=== PATIENT | male | born 1955 | race Caucasian/White ===

== ENCOUNTER 2016-07-11 08:07 | Inpatient (IN) | payer OTHER ==
[~2016-07-11] VITALS: Ht 167.6 cm; Wt 79.4 kg
--- NOTE | 2016-07-11 08:12 | NUR ---
bibra from home due to dizziness since 299. Patient is aao3, appears in no apparent distress, respiration even and unlabored. Patient also reported nausea, no vomitting. Skin is warm to touch and non diaphoretic. Patient is afebrile. Connected pt to tele monitor. Pending MD evaluation.
--- NOTE | 2016-07-11 08:15 | NUR ---
MD Zuniga at for eval
[2016-07-11] MEDS ORDERED: MECLIZINE HCL 25 MG TABLET ONE (08:20)
[2016-07-11] MEDS ORDERED: IV NS 0.9% 1,000 ML ONE (08:20)
[2016-07-11] MEDS ORDERED: ONDANSETRON HCL/PF 4 MG/2 ML VIAL ONE (08:20)
[2016-07-11] MEDS ORDERED: DIAZEPAM 5 MG/ML 2 ML DISP.SYRIN ONE (08:20)
[2016-07-11] MEDS ORDERED: ONDANSETRON HCL/PF 4 MG/2 ML VIAL IV ONE (08:30)
[2016-07-11] MEDS ORDERED: IV NS 0.9% 1,000 ML BAG IV ONE (08:30)
[2016-07-11] MEDS ORDERED: MECLIZINE HCL 25 MG TABLET PO ONE (08:30)
[2016-07-11] MEDS ORDERED: DIAZEPAM 5 MG/ML 2 ML DISP.SYRIN IV ONE (08:30)
--- NOTE | 2016-07-11 08:34 | NUR ---
wasted valium 5mg iv, witnessed by ARIANE Concepcion
[2016-07-11 08:38] LABS: BASOPHILS # (AUTO) 0.1 /CMM (0.0-0.2); BASOPHILS % (AUTO) 0.7 % (0.0-2.0); EOSINOPHILS # (AUTO) 0.1 /CMM (0.0-0.7); EOSINOPHILS % (AUTO) 1.7 % (0.0-6.0); HEMATOCRIT 44 % (39-51); LYMPHOCYTES # (AUTO) 1.8 /CMM (0.8-4.8); MEAN CORPUSCULAR HEMOGLOBIN 29 PG (26.0-33.0); MEAN CORPUSCULAR HGB CONC 34 g/dl (31.0-36.0); MEAN CORPUSCULAR VOLUME 87 fL (80-96); MONOCYTES # (AUTO) 0.6 /CMM (0.1-1.30); MONOCYTES % (AUTO) 6.4 % (2.0-12.0); NEUTROPHILS % (AUTO) 70.2 % (43.0-81.0); PLATELET COUNT (AUTO) 315 /CMM (150-450); RDW COEFFICIENT OF VARIATION 12.8 (11.5-15.0); RED BLOOD CELL COUNT(AUTO) 5.09 MIL/uL (4.5-6.0); WHITE BLOOD COUNT (AUTO) 8.6 K/uL (4.3-11.0)
--- NOTE | 2016-07-11 08:40 | NUR ---
PT TAKEN TO CT.
[2016-07-11 08:43] LABS: CALCIUM, SERUM 8.5 mg/dL (8.5-10.1); CARBON DIOXIDE 27 mmol/L (21-32); CHLORIDE 102 mmol/L (98-107); CREATININE 0.7 mg/dL (0.6-1.3); GFR 116 mL/min (>60); GLUCOSE 247 mg/dL (74-106); POTASSIUM 3.9 mmol/L (3.5-5.1); SODIUM SERUM 138 mmol/L (136-145); UREA NITROGEN, BLOOD 13 mg/dL (7-18)
[2016-07-11 08:49] LABS: ALANINE AMINOTRANSFERASE 32 U/L (12-78); ALBUMIN 3.9 g/dL (3.4-5.0); ALCOHOL, BLOOD < 3 mg/dL (0-0); ALKALINE PHOSPHATASE 79 U/L (46-116); ASPARTATE AMINOTRANSFERASE 17 U/L (15-37); BILIRUBIN,DIRECT 0.1 mg/dL (0.0-0.2); BILIRUBIN,TOTAL 0.4 mg/dL (0.2-1.0); TOTAL PROTEIN, SERUM 7.6 g/dL (6.4-8.2)
[2016-07-11 08:53] LABS: TROPONIN I < 0.017 ng/mL (0.00-0.056)
[2016-07-11 09:30] LABS: INR 0.91 (0.87-1.13); PROTHROMBIN TIME 9.7 SECS (9.5-12.7)
[2016-07-11] MEDS ORDERED: METF500T4 PO (09:54)
[2016-07-11] MEDS ORDERED: AMLO10TA2 PO (09:54)
--- NOTE | 2016-07-11 09:58 | NUR ---
PER PT OKAY TO EAT, FOOD ORDERED FOR PT.
--- NOTE | 2016-07-11 10:18 | NUR ---
Paged [facility] -- waiting for Dr Umanzor's call back.
--- NOTE | 2016-07-11 10:55 | NUR ---
Follow up call on [facility], waiting for Dr Umanzor's call back.
--- NOTE | 2016-07-11 11:00 | NUR ---
REPORT GIVEN TO WALLY THAKKAR FOR MS 202.
--- NOTE | 2016-07-11 11:50 | NUR ---
RN NOTES DR. WAGNER AT BEDSIDE. PER MD, HE WANTS PATIENT ON TELEMETRY, IDER ORNAMENT STITCHER NOTIFIED. WAITING FOR BED.
[2016-07-11] MEDS ORDERED: Z GUARD REMEDY 2 OZ OINT TP PRN (12:00)
[2016-07-11] MEDS ORDERED: DEXTROSE 50%-WATER 50 ML DISP.SYRIN IV PRN (12:00)
[2016-07-11] MEDS ORDERED: HYDROCODONE/APAP 5/325MG 1 EACH TABLET PO PRN (12:00)
[2016-07-11] MEDS ORDERED: MAG HYDROX/AL HYDROX/SIMETH 30 ML UDC PO PRN (12:00)
[2016-07-11] MEDS ORDERED: ONDANSETRON HCL/PF 4 MG/2 ML VIAL IVP PRN (12:00)
[2016-07-11] MEDS ORDERED: ZOLPIDEM TARTRATE 5 MG TABLET PO PRN (12:00)
[2016-07-11] MEDS ORDERED: ACETAMINOPHEN 325 MG TABLET PO PRN (12:00)
[2016-07-11] MEDS ORDERED: MAGNESIUM HYDROXIDE 30 ML UDC PO PRN (12:00)
--- NOTE | 2016-07-11 12:00 | NUR ---
RN NOTES PATIENT TRANSFERRED TO RM 322. REPORT GIVEN TO BRANDON.
[2016-07-11 12:15] VITALS: BP 124/72
--- NOTE | 2016-07-11 12:15 | NUR ---
TELE/PART TIME FLEXIBLE CLERK NOTES RECEIVED THIS 60 Y/O MALE FROM ER, TO RM [id number], VIA W/C IN STABLE CONDITION, WITH ADMISSION DX: DIZZINESS, HX: DM TYPE 2, OH IN 2014 (STENT PLACED), UNDER CARE OF DR. WAGNER, PATIENT IS A/O X 4. DENIES PAIN, SOB, NO DISTRESS, ASSISTED TO THE ROOM, ORIENTED TO THE CALL LIGHT SYSTEM, VISITING HOURS. PATIENT IS ON RA, TOLERATING WELL OR SAT 96%. TELE MONITOR ATTACHED TO THE PATIENT WITH SR 94. IV LINE RAC INTACT, PATENT. FULL BODY ASSESSMENT DONE, NO SKIN BREAKDOWN, PATIENT IS AMBULATORY, CONTINENT. NEEDS MET IN TIMELY MANNER, WITH CALL LIGHT WITHIN EASY REACH. WILL CONTINUE TO MONITOR ACCORDINGLY
[2016-07-11 12:37] LABS: CALCIUM, SERUM 8.3 mg/dL (8.5-10.1); POTASSIUM 4.2 mmol/L (3.5-5.1)
[2016-07-11 12:50] LABS: ALBUMIN 3.5 g/dL (3.4-5.0); BILIRUBIN,TOTAL 0.3 mg/dL (0.2-1.0); TOTAL PROTEIN, SERUM 6.9 g/dL (6.4-8.2)
[2016-07-11 12:51] LABS: THYROID STIMULATING HORMONE 0.607 uIU/mL (0.358-3.74)
[2016-07-11] MEDS: LOSARTAN POTASSIUM 50 MG TABLET PO SCH (13:00)
--- NOTE | 2016-07-11 13:00 | NUR ---
TEXTED DR. KINGSLEY FOR MRI APPROVAL.
[2016-07-11] MEDS: BLOOD SUGAR DIAGNOSTIC 1 EACH STRIP IN SCH ×3 (13:37→22:12)
--- NOTE | 2016-07-11 13:42 | NUR ---
/ARIANE NOTES BLOOD SUGAR CHECKED 271, REFUSED MD REY MADE AWARE Addendum: 07/11/16 at 1733 by ROSELYN LECHUGA RN MRSA SWAB, AND URINE COLLECTION DONE SENT TO THE LAB
[2016-07-11] MEDS: INSULIN REGULAR, HUMAN 100 UNIT/ML 3 ML VIAL SQ PRN ×3 (15:42→22:15)
[2016-07-11 16:00] VITALS: BP 128/66
[2016-07-11 16:25] LABS: APPEARANCE,URINE CLEAR (CLEAR); BILIRUBIN,URINE NEGATIVE (NEGATIVE); BLOOD, URINE NEGATIVE Ery/uL (NEGATIVE); COLOR,URINE YELLOW (YELLOW); KETONES,URINE NEGATIVE (NEGATIVE); LEUKOCYTE ESTERASE ,URINE NEGATIVE (NEGATIVE); NITRITE, URINE NEGATIVE (NEGATIVE); PROTEIN,URINE NEGATIVE (NEGATIVE); UGLUCOSE 3+ mg/dL (NEGATIVE)
[2016-07-11 16:28] LABS: CANNABINOID, URINE NEGATIVE (NEGATIVE); PHENCYCLIDINE SCREEN,URINE NEGATIVE (NEGATIVE)
[2016-07-11] MEDS: METFORMIN 500 MG TABLET PO SCH (16:39)
--- NOTE | 2016-07-11 17:00 | NUR ---
RN NOTES BLOOD SUGAR CHECKED 337, REGULAR INSULIN 8 UNITS GIVEN PER SLIDING SCALE
[2016-07-11 18:05] LABS: ADD URINE CULTURE NO; BACTERIA,URINE None seen /HPF (None Seen); RBC,URINE NONE SEEN /HPF (0-2); SQUAMOUS EPITHELIAL CELL,UR Few /HPF (None Seen); WBC,URINE NONE SEEN /HPF (0-3)
--- NOTE | 2016-07-11 18:12 | NUR ---
RN NOTES ORDER RECEIVED FROM DR. WAGNER START SIMVASTATIN 20 MG PO QHS PER PATIENT REQUEST. NOTES, CARRIED OUT
--- NOTE | 2016-07-11 19:30 | NUR ---
TELE/RN CLOSING NOTES PATIENT IS IN THE BED, AWAKE, ALERT, WITHOUT SOB, NO DISTRESS, DENIES CHEST PAIN, RESTING COMFORTABLY. ON RA, TOLERATING WELL . IV PERIPHERAL LINE REPLACED TO LFA 22 G, PATENT, INTACT, DENIES PAIN, TELE MONITOR ATTACHED TO THE PATIENT WITH SR 90. KEPT CLEAN, DRY COMFORTABLE, NEEDS MET IN TIMELY MANNER, WITH CALL LIGHT WITHIN EASY REACH. ENDORSED TO THE WEB SEARCH EVALUATOR NURSE FOR ANAYELI
--- NOTE | 2016-07-11 19:35 | NUR ---
RN NOTES RECEIVED PT AWAKE , ALERT AND ORIENTED X4, PT LOOKS ANXIOUS AND WANTS HIS BLOOD SUGAR CHECKED BECAUSE HE RECEIVED INSULIN BEFORE DINNER AND ITS HIS FIRST TIME TO TAKE INSULIN. PT DENIES ANY PAIN , NAUSEA AND VOMITING. PT VERBALIZING HE FEELS WEAK. NO SOB, NO SIGNS OF ACUTE DISTRESS , TOLERATING ROOM AIR. TELEMONITOR READS SINUS RHYTHM AT 88. IV ACCESS ON LEFT FOREARM PATENT AND INTACT. PT ABLE TO AMBULATE GOING TO THE BATHROOM WITH STEADY GAIT. KEPT PT COMFORTABLE AND ATTENDED. AWAITING FOR BRAIN MRI TO BE DONE. WILL CONTINUE TO MONITOR PT.
[2016-07-11 20:00] VITALS: BP 134/72
--- NOTE | 2016-07-11 20:17 | NUR ---
RN NOTES PT AND SISTER AT BEDSIDE REQUESTED TO CHECK HIS BLOOD SUGAR, THEY ARE WORRIED BECAUSE PER PT HIS NOT ON INSULIN BEFORE AND ITS HIS FIRST TIME TO TAKE INSULIN, AND ALSO HE FEELS WEAK. BLOOD SUGAR CHECKED 115 MG/DL, PT WAS RELIEVED IT WAS NORMAL. SNACK OFFERED AND TOLERATED WELL. WILL CONTINUE TO MONITOR PT.
--- NOTE | 2016-07-11 21:20 | NUR ---
RN NOTES PT WAS PICKED UP FOR MRI OF THE BRAIN IN STABLE CONDITION VIA WHEELCHAIR PER PT REQUEST.
[2016-07-11 22:00] VITALS: BP 134/72
[2016-07-11] MEDS ORDERED: SIMVASTATIN 20 MG TABLET PO SCH (22:00)
--- NOTE | 2016-07-11 22:15 | NUR ---
RN NOTES BLOOD SUGAR CHECKED 334 MG/DL, 8 UNITS REGULAR INSULIN GIVEN SUBCU PER SLIDING SCALE. WILL CONTINUE TO MONITOR PT.
--- NOTE | 2016-07-11 23:30 | NUR ---
RN NOTES SNACK OFFERED TO THE PT TO PREVENT BLOOD SUGAR FROM GOING DOWN. PT ATE SANDWICH WITH APPLE JUICE, AND TOLERATED WELL. WILL CONTINUE TO MONITOR PT.
[2016-07-12] VITALS: BP 127/65
[2016-07-12] MEDS: BLOOD SUGAR DIAGNOSTIC 1 EACH STRIP IN SCH ×2 (06:37→12:04)
[2016-07-12] MEDS: INSULIN REGULAR, HUMAN 100 UNIT/ML 3 ML VIAL SQ PRN ×2 (06:39→12:06)
--- NOTE | 2016-07-12 06:39 | NUR ---
RN NOTES BLOOD SUGAR CHECKED 229MG/DL, 4 UNITS REGULAR INSULIN GIVEN SUBCU PER SLIDING SCALE.
--- NOTE | 2016-07-12 07:00 | NUR ---
WIRELINE OPERATOR NOTES RECEIVED PATIENT IN BED, AWAKE A/O X4. APPEARS ANXIOUS, NO C/O SOB. ON TELE MONITOR SINUS RHYTHM HR 73. NO C/O DIZZINESS. BREATHING EVEN AND NON LABORED. CALL LIGHT WITHIN REACH. WILL CONT TO MONITOR.
--- NOTE | 2016-07-12 07:30 | NUR ---
RN NOTES PT AWAKE, NO SOB, NOT IN DISTRESS, TOLERATING ROOM AIR. TELEMONITOR READS SINUS RHYTHM AT 86. VITAL SIGNS STABLE. NO COMPLAIN OF PAIN, NO EPISODE OF NAUSEA AND VOMITING.PT ABLE TO AMBULATE WITH STEADY GAIT. PT FEELS BETTER. NO SIGNIFICANT CHANGE IN PT CONDITION. ENDORSED TO MORNING RN FOR CONTINUITY OF CARE.
[2016-07-12 07:48] LABS: BASOPHILS % (AUTO) 0.4 % (0.0-2.0); EOSINOPHILS # (AUTO) 0.1 /CMM (0.0-0.7); EOSINOPHILS % (AUTO) 1.5 % (0.0-6.0); HEMATOCRIT 44 % (39-51); LYMPHOCYTES # (AUTO) 1.9 /CMM (0.8-4.8); LYMPHOCYTES % (AUTO) 24.2 % (20.0-44.0); MEAN CORPUSCULAR HEMOGLOBIN 30 PG (26.0-33.0); MEAN CORPUSCULAR HGB CONC 34 g/dl (31.0-36.0); MEAN CORPUSCULAR VOLUME 87 fL (80-96); MONOCYTES # (AUTO) 0.6 /CMM (0.1-1.30); MONOCYTES % (AUTO) 7.7 % (2.0-12.0); NEUTROPHILS # (AUTO) 5.3 /CMM (1.8-8.9); NEUTROPHILS % (AUTO) 66.2 % (43.0-81.0); PLATELET COUNT (AUTO) 319 /CMM (150-450); RDW COEFFICIENT OF VARIATION 12.3 (11.5-15.0); RED BLOOD CELL COUNT(AUTO) 5.04 MIL/uL (4.5-6.0)
[2016-07-12 07:53] LABS: INR 0.94 (0.87-1.13)
[2016-07-12 08:00] VITALS: BP 137/74
[2016-07-12] MEDS: LOSARTAN POTASSIUM 50 MG TABLET PO SCH (08:24)
[2016-07-12] MEDS: METFORMIN 500 MG TABLET PO SCH (08:25)
--- NOTE | 2016-07-12 08:34 | NUR ---
REVIEWED VACCINES STATUS WITH THE PATIENT, STATE HE RECEIVED FLU VACCINE LAST YEAR DEC. AND REFUSE TO RECEIVE PNA VACCINE. UPDATED VACCINATION STATUS.
--- NOTE | 2016-07-12 08:37 | NUR ---
PATIENT IS SEEN BY DR. BARAJAS/CARDIO TODAY, OK TO TRANSFER TO [facility] ORDERED.
[2016-07-12 08:58] LABS: CALCIUM, SERUM 8.5 mg/dL (8.5-10.1); CREATININE 0.7 mg/dL (0.6-1.3); MAGNESIUM 1.6 mg/dL (1.8-2.4); PHOSPHORUS 4.6 mg/dL (2.5-4.9); POTASSIUM 3.8 mmol/L (3.5-5.1)
[2016-07-12] MEDS ORDERED: AMLODIPINE BESYLATE 10 MG TABLET PO SCH (09:00)
[2016-07-12] MEDS ORDERED: ASPIRIN 325 MG TABLET PO SCH (09:00)
--- NOTE | 2016-07-12 10:04 | NUR ---
LOW MAGNESIUM 1.[address] WAGNER ORDERED TO GIVE MAGNESIUM PO 800MG X1 NOTED AND ACKNOWLEDGED.
--- NOTE | 2016-07-12 10:13 | NUR ---
PATIENT IS SEEN BY DR. WAGNER TODAY. PATIENT TO BE DISCHARGED HOME ORDERED.
[2016-07-12] MEDS ORDERED: MAGNESIUM OXIDE 400 MG TABLET PO ONE (10:30)
[2016-07-12 12:00] VITALS: BP 127/72
--- NOTE | 2016-07-12 12:07 | NUR ---
BS 233MG/DL. GIVEN 4 UNITS INSULIN REGULAR SQ PER [facility] COVERAGE.
--- NOTE | 2016-07-12 12:41 | NUR ---
MS RN DISCHARGED PATIENT HAS BEEN CLEARED FOR DISCHARGE HOME BY MD. PATIENT IS AMBULATORY, NO C/O DIZZINESS SINCE THIS MORNING. V/S REMAINS STABLE. SKIN INTACT, VOIDED WITHOUT DIFFICULTY. DISCHARGE INSTRUCTION GIVEN TO THE PATIENT, VERBALIZED UNDERSTANDING. BELONGINGS CHECKED AND SEND WITH THE PATIENT UPON DC. PRESCRIPTION GIVEN TO THE PATIENT. PATIENT LEFT HOSP IN STABLE CONDITION VIA PRIVATE CAR ACCOMPANIED BY SISTER-JOSSE.
== END 2016-07-12 12:40 | disposition home or self-care (01) | DRG 93 ==
LOC: ER 08:09 → TELE-TD 10:43 → MED 12:16 → TELE 12:22 → MED 07-12 10:52
PROVIDERS: ADMIT Family Medicine; ATTEND Family Medicine
DX: R27.0 Ataxia, unspecified (principal); E11.9 Type 2 diabetes mellitus without complications; E78.5 Hyperlipidemia, unspecified; E83.42 Hypomagnesemia; F17.210 Nicotine dependence, cigarettes, uncomplicated; I10 Essential (primary) hypertension; I25.10 Atherosclerotic heart disease of native coronary artery without angina pectoris; Z83.3 Family history of diabetes mellitus; Z82.49 Family history of ischemic heart disease and other diseases of the circulatory system; Z98.61 Coronary angioplasty status; Z71.6 Tobacco abuse counseling; R90.89 Other abnormal findings on diagnostic imaging of central nervous system
CPT/HCPCS: 36415; 70450-TC; 70551-TC; 71010-TC; 80048-TC; 80053-TC; 80061-TC; 80076-TC; 80305; 81000-TC; 82962-TC; 83735-TC; 83880; 84100-TC; 84439-TC; 84443-TC; 84484-TC; 85025-TC; 85652-TC; 85730-TC; 87081-TC; 93307-TC; A4606; G0480; J1815; J2405; J3360; J7030; J8597; Z7610

== ENCOUNTER 2023-08-12 21:56 | Emergency (ER) | payer OTHER ==
[~2023-08-12] VITALS: Ht 172.7 cm; Wt 72.6 kg
[~2023-08-12 21:56] MED LIST: AMLO-213 PO; METF-440 PO
[2023-08-12] MEDS ORDERED: PIPERACI/TAZO 3.375GM/D5W 50ML PB IV ONE (22:43)
[2023-08-12] MEDS: PIPERACILLIN /TAZOBACTAM 3.375 G in IV D5W 50 ML IV ONE (23:07)
[2023-08-12 23:20] LABS: BASOPHILS % (AUTO) 0.5 % (0.0-2.0); EOSINOPHILS # (AUTO) 0.1 K/uL (0.0-0.7); EOSINOPHILS % (AUTO) 1.1 % (0.0-6.0); HEMATOCRIT 35 % (39-51); HEMOGLOBIN 11.9 g/dL (13.5-17.5); LYMPHOCYTES # (AUTO) 0.9 K/uL (0.8-4.8); LYMPHOCYTES % (AUTO) 12.6 % (20.0-44.0); MEAN CORPUSCULAR HEMOGLOBIN 31 PG (26.0-33.0); MEAN CORPUSCULAR HGB CONC 34 g/dl (31.0-36.0); MEAN CORPUSCULAR VOLUME 90 fL (80-96); MONOCYTES # (AUTO) 0.9 K/uL (0.1-1.30); MONOCYTES % (AUTO) 12.8 % (2.0-12.0); PLATELET COUNT (AUTO) 296 K/uL (150-450); RED BLOOD CELL COUNT(AUTO) 3.88 MIL/uL (4.5-6.0); RED CELL DISTRIBUTION WIDTH 13.6 % (11.5-15.0); WHITE BLOOD COUNT (AUTO) 6.9 K/uL (4.3-11.0)
[2023-08-12 23:30] LABS: CALCIUM, SERUM 9.2 mg/dL (8.5-10.1); CREATININE 1.1 mg/dL (0.6-1.3); POTASSIUM 4.2 mmol/L (3.5-5.1)
[2023-08-12 23:33] LABS: APPEARANCE,URINE CLEAR (CLEAR); BILIRUBIN,URINE NEGATIVE (NEGATIVE); BLOOD, URINE 2+ Ery/uL (NEGATIVE); COLOR,URINE YELLOW (YELLOW); KETONES,URINE NEGATIVE (NEGATIVE); LEUKOCYTE ESTERASE ,URINE 1+ (NEGATIVE); NITRITE, URINE NEGATIVE (NEGATIVE); PROTEIN,URINE 1+ mg/dl (NEGATIVE); UGLUCOSE NEGATIVE (NEGATIVE); UROBILINOGEN,URINE 0.2 EU/dL (0.2)
[2023-08-12 23:36] LABS: LACTIC ACID 0.9 mmol/L (0.4-2.0)
[2023-08-12 23:40] LABS: ADD URINE CULTURE YES; BACTERIA,URINE Rare /HPF (None Seen); SQUAMOUS EPITHELIAL CELL,UR Rare /HPF (None Seen)
[2023-08-13] MEDS ORDERED: CEFTRIAXONE 1GM BAG (ER ONLY) 50 ML IV ONE (00:21)
[2023-08-13] MEDS ORDERED: KETOROLAC TROMETHAMINE 15 MG/ML VIAL ONE (00:21)
[2023-08-13] MEDS: CEFTRIAXONE 1GM BAG (ER ONLY) 1 GM/50 ML PIGGYBACK IV ONE (00:30)
[2023-08-13] MEDS: KETOROLAC TROMETHAMINE 15 MG/ML VIAL IV ONE (00:31)
[2023-08-13] MEDS ORDERED: IBUP-1490 PO (00:56)
[2023-08-13] MEDS ORDERED: DOXY100C2 PO (00:56)
[2023-08-13] MEDS ORDERED: FLUC150T PO (01:01)
[2023-08-13 01:08] VITALS: BP 151/89; TEMP 98.5; O2SAT 99
== END 2023-08-13 01:11 | disposition home or self-care (01) ==
LOC: ER 22:02
DX: N45.3 Epididymo-orchitis (principal); I10 Essential (primary) hypertension; E11.9 Type 2 diabetes mellitus without complications; Z79.84 Long term (current) use of oral hypoglycemic drugs; Z79.899 Other long term (current) drug therapy
CPT/HCPCS: 99284; 96365; 76870; 85025; 80048; 87040 ×2; 87086; 83605; 81001; 36415; 96367; 96375; J2543 ×2; J7060; J0696; J1885